=== PATIENT | male | born 1995 | race Caucasian/White ===

== ENCOUNTER → 2017-10-27 09:51 | Outpatient (CLI) | payer OTHER, SELFPAY ==
--- NOTE | 2017-10-27 09:59 | DI.CT.S_ITS ---
PROCEDURE: CT ANGIO CHEST ABDOMEN PELVIS INDICATIONS: pre-op for congenital heart disease valve replacement TECHNIQUE: Precontrast 5 mm thick sections acquired from the lung apices to the iliac crests. After the administration of intravenous contrast, 2.5 mm thick sections again acquired from the lung apices to the iliac crests. Maximum intensity projection (MIP) oblique sagittal and coronal reformats were then acquired. For radiation dose reduction, the following was used: automated exposure control. COMPARISON: None. FINDINGS: Image quality: Partially degraded by motion artifact within the abdomen. AORTA: The aorta at the level of the sinuses of Valsalva measures 54 mm short axis diameter. The sinotubular junction measures roughly 33 mm short axis. The proximal aortic arch measures 29 mm short axis. The distal aortic arch measures 19 mm short axis. The proximal descending thoracic aorta measures 25 mm short axis. The distal descending aorta measures 15 mm short axis. The innominate, right subclavian, and right vertebral arteries are patent. The visualized portions of the bilateral common carotid arteries are patent. Left subclavian artery is either chronically occluded at its origin, or congenitally absent. There is reconstituted flow is seen within the mid left subclavian artery, roughly 15 mm distal to its expected origin. The proximal left vertebral artery is occluded. There is some flow seen within a small caliber left vertebral artery, at roughly the C6 level. CHEST: Lungs and pleura: No acute airspace opacities. No pleural effusions or pneumothorax. Central and peripheral airways are patent and normal in caliber. Mediastinum: Heart size is normal. No pericardial effusion. No mediastinal or hilar adenopathy by size criteria. Central pulmonary arteries are mildly enlarged, measuring 22 mm on the right and 26 mm on the left. There is a stent within the main pulmonary artery. Esophagus is normal in caliber. No hiatal hernias. Bones and chest wall: No axillary adenopathy by size criteria. Thyroid gland is within normal limits. No suspicious bony lesions. No vertebral body compression fractures. ABDOMEN: Vasculature: Celiac trunk and mesenteric arteries are patent. Renal arteries are also patent. Solid organs: Liver is normal in size. There is reflux of cardiac contrast into the hepatic venous vasculature. Gallbladder is within normal limits. Biliary system is non dilated. Pancreas enhances normally. Spleen is normal in size and enhancement. No adrenal nodules. Both kidneys are normal in size and enhancement, without hydronephrosis. Peritoneum and bowel: No free fluid or air. Bowel loops are normal in caliber and wall thickness. Nodes and vessels: No retroperitoneal or mesenteric adenopathy by size criteria. Inferior vena cava is normal in morphology. 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 Left renal vein drains to the left moiety of the IVC. The right external iliac artery is severely diffusely narrowed. The right proximal common femoral artery appears to be congenitally absent. There is reconstituted flow seen within the right distal common femoral artery. The right proximal superficial and profunda femoral arteries are patent. Left iliac arterial vasculature is patent. Left common and proximal superficial femoral and profunda femoris are patent. Miscellaneous: No ventral hernias. PELVIS: Genitourinary: Bladder wall thickness is normal. Miscellaneous: No inguinal hernias or adenopathy. No ventral hernias. Bones: No suspicious bony lesions. No vertebral body compression fractures. IMPRESSION: 1. Aneurysmal dilatation of the aortic root as described above. 2. Duplicated infrarenal IVC. 3. Pulmonary artery dilatation. 4. Right heart failure. 5. 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 6. 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 Dictated by: Vitlaiy Conroy M.D. on 10/27/2017 at 11:59 Approved by: Vitaliy Conroy M.D. on 10/27/2017 at 12:13
== END ==
PROVIDERS: PCP Internal Medicine; Visit Provider Internal Medicine
DX: Q25.1 Coarctation of aorta (principal); I50.89 Other heart failure; I28.8 Other diseases of pulmonary vessels
CPT/HCPCS: 71275; 74174; Q9967

== ENCOUNTER → 2018-01-16 15:52 | Outpatient (CLI) | payer OTHER, SELFPAY ==
[2018-01-16 16:28] LABS: Add Manual Diff / Slide Review NO; Basophils Percent Auto 0.4 % (0-2); Eosinophils Percent Auto 3.1 % (2-4); Hematocrit 38.2 % (41-53); Hemoglobin 12.4 g/dL (13.5-17.5); Mean Corpuscular HGB Conc 32.5 % (30-36); Mean Corpuscular Hemoglobin 27.1 PG (26-34); Mean Corpuscular Volume 83.6 fL (80-100); Monocytes Percent Auto 6.7 % (3-14); Neutrophils Absolute Auto 8500 /uL (3000-5900); Neutrophils Percent Auto 73.8 % (50-75); Platelet Count 466 X10^3/uL (150-400); Red Blood Cell Count 4.57 X10^6/uL (4.5-5.9); Red Cell Distribution Width 15.3 % (11.6-14.8); White Blood Cell Count 11.5 X10^3/uL (4.5-11.0)
[2018-01-16 16:52] LABS: Alanine Aminotransferase 45 IU/L (21-72); Albumin 4.5 g/dL (3.5-5.0); Albumin Globulin Ratio 1.7 (1.0-2.8); Alkaline Phosphatase 99 U/L (38-126); Amylase 35 U/L (30-110); Aspartate Aminotransferase 32 IU/L (17-59); BUN Creatinine Ratio 26.7 (6-22); Bilirubin Total 0.6 mg/dL (0.2-1.3); Blood Urea Nitrogen 16 mg/dL (9-20); Calcium 9.8 mg/dL (8.4-10.2); Carbon Dioxide 26 mmol/L (22-32); Chloride 102 mmol/L (98-107); Estimated Glomerular Filt Rate > 60.0 mL/min (>60); Globulin 2.6 g/dL (1.7-4.1); Glucose 94 mg/dL (70-100); HEMOLYSIS < 15 (0-50); Lipase 59 U/L (23-300); Potassium 4.4 mmol/L (3.4-5.1); Sodium 142 mmol/L (137-145); Total Protein 7.1 g/dL (6.3-8.2)
== END ==
PROVIDERS: PCP Internal Medicine; Visit Provider Family Medicine
DX: R11.10 Vomiting, unspecified (principal); R19.7 Diarrhea, unspecified
CPT/HCPCS: 36415; 80053; 82150; 83690; 85025

== ENCOUNTER → 2018-01-18 13:45 | Outpatient (CLI) | payer OTHER, SELFPAY ==
--- NOTE | 2018-01-18 13:46 | DI.RAD.S_ITS ---
PROCEDURE: FL BARIUM SWALLOW INDICATIONS: vomiting post cardiac surg COMPARISON: None. FINDINGS: Function: There is normal esophageal peristalsis. No elicited gastroesophageal reflux. Morphology: Single contrast images demonstrate normal mucosal morphology. Single contrast views show no esophageal strictures, extrinsic mass effects, or diverticula. Limited images of the stomach demonstrate normal appearance. IMPRESSION: Patient reports prior cardiac surgery for valve replacement, and cannot rotate into a prone position for portions of this study. The study appears normal in terms of the esophageal motility, gastric appearance, and absence of reflux. Dictated by: Jc Ojeda M.D. on 01/18/2018 at 14:52 Approved by: Jc Ojeda M.D. on 01/18/2018 at 14:53
== END ==
PROVIDERS: PCP Internal Medicine; Visit Provider Family Medicine
DX: R11.11 Vomiting without nausea (principal); Z95.2 Presence of prosthetic heart valve
CPT/HCPCS: 74220

== ENCOUNTER 2018-06-08 14:00 | Outpatient (RCR) | payer OTHER, SELFPAY | END 2018-06-08 15:00 | LOC: CAR 14:00 | PROVIDERS: PCP Internal Medicine; Visit Provider Internal Medicine | DX: Q24.9 Congenital malformation of heart, unspecified (principal); I51.7 Cardiomegaly | CPT/HCPCS: 93798 ==

== ENCOUNTER 2018-12-10 16:53 | Emergency (ER) | payer OTHER, SELFPAY ==
[2018-12-10 17:00] VITALS: BP 114/68; PULSE 89; RESP 18; TEMP 37; O2SAT 97; BMI 22.1
[2018-12-10 17:30] VITALS: BP 92/42; PULSE 71; RESP 11; O2SAT 98
[2018-12-10 17:32] LABS: Add Manual Diff / Slide Review NO; Basophils Absolute Auto 0 /uL (0-100); Basophils Percent Auto 0.5 % (0-2); Eosinophils Absolute Auto 200 /uL (0-450); Eosinophils Percent Auto 2.5 % (2-4); Hematocrit 43.9 % (41-53); Lymphocytes Absolute Auto 1400 /uL (1100-4500); Lymphocytes Percent Auto 16.1 % (25-40); Mean Corpuscular HGB Conc 34.1 % (30-36); Mean Corpuscular Hemoglobin 29.6 PG (26-34); Mean Corpuscular Volume 86.8 fL (80-100); Monocytes Absolute Auto 500 /uL (0-900); Monocytes Percent Auto 5.9 % (3-14); Neutrophils Absolute Auto 6300 /uL (1500-7000); Platelet Count 229 X10^3/uL (150-400); Red Blood Cell Count 5.06 X10^6/uL (4.5-5.9); Red Cell Distribution Width 13.5 % (11.6-14.8); White Blood Cell Count 8.4 X10^3/uL (4.5-11.0)
[2018-12-10 17:34] LABS: INR 3.1 (0.9-1.3); Prothrombin Time 36.7 SECONDS (10.1-12.7)
[2018-12-10 17:37] LABS: PTT Partial Thromboplastin Tim 46 SECONDS (26.4-36.2)
[2018-12-10 17:39] LABS: Alanine Aminotransferase 9 IU/L (21-72); Albumin 4.5 g/dL (3.5-5.0); Albumin Globulin Ratio 1.7 (1.0-2.8); Alkaline Phosphatase 55 U/L (38-126); Aspartate Aminotransferase 21 IU/L (17-59); BUN Creatinine Ratio 13.3 (6-22); Bilirubin Total 0.7 mg/dL (0.2-1.3); Blood Urea Nitrogen 12 mg/dL (9-20); Calcium 9.3 mg/dL (8.4-10.2); Carbon Dioxide 26 mmol/L (22-32); Chloride 105 mmol/L (98-107); Estimated Glomerular Filt Rate > 60.0 mL/min (>60); Globulin 2.6 g/dL (1.7-4.1); Glucose 91 mg/dL (70-100); HEMOLYSIS < 15 (0-50); Lipase 407 U/L (23-300); Potassium 3.8 mmol/L (3.4-5.1); Sodium 141 mmol/L (137-145); Total Protein 7.1 g/dL (6.3-8.2)
[2018-12-10 17:50] LABS: Troponin I < 0.012 ng/mL (0.01-0.034)
--- NOTE | 2018-12-10 18:00 | ED_ITS ---
HPI - Dizziness General Chief Complaint: Dizziness Stated Complaint: SUDDEN DIZZINESS/CROSS EYED AFTER NAP Time Seen by Provider: 12/10/18 17:10 Source: patient Mode of arrival: ambulatory Limitations: no limitations History of Present Illness HPI Narrative: 23-year-old male. Has a history of congenital heart abnor malities. Has his aortic mitral and pulmonary valves replaced. He is currently on Coumadin. He is here for evaluation because he states he was at his normal state health when he was sitting on the couch. He states that he started to feel little dizzy. He did describe it as a room spinning sensation and also a lightheadedness. He had no other associated symptoms. He states that he closed his eyes to take a nap. States he was feeling somewhat tired at the time. He states that he woke to his girlfriend tapping him on the shoulder in telling him to look at her. His girlfriend states that when he did so his left eye was deviated laterally. Patient states that at that time he was not experiencing any chest pain or shortness of breath or palpitations. Was not experiencing headache no ringing in his ears. He did feel quite nauseous at the time. Had some difficulty ambulating but was able to do so. Unsure of his symptoms resolved or got worse with closing of 1 or both of his eyes did have 1 episode of vomiting. Did that his symptoms did completely resolve after less than 45 mi nutes and was asymptomatic at the time my evaluation. Related Data Home Medications Medication Instructions Recorded Confirmed aspirin 81 mg tablet,delayed 81 mg PO DAILY 01/03/18 08/01/18 release enalapril maleate 10 mg tablet 10 mg PO DAILY 07/09/18 08/01/18 Previous Rx's Medication Instructions Recorded warfarin 5 mg tablet 5 mg PO DAILY #150 tab 02/06/18 Allergies Allergy/AdvReac Type Severity Reaction Status Date / Time No Known Drug Allergies Allergy Verified 12/10/18 17:00 Review of Systems Constitutional Constitutional: Denies fatigue, Denies fever(s), Denies headache(s), Denies lethargy and Denies weakness Eyes Eyes: Reports blurry vision and Reports diplopia ENT Ears, Nose, Mouth, and Throat: Reports vertigo, Reports dizziness, Denies headache(s), Denies hearing loss, Reports disequilibrium and Denies throat swelling Cardiovascular Cardiovascular: Denies chest pain, Denies diaphoresis, Denies rapid heart rate, Denies palpitations and Denies dyspnea Respiratory Respiratory: Denies cough and Denies dyspnea Gastrointestinal Gastrointestinal: Denies abdominal pain and Reports vomiting Musculoskeletal Musculoskeletal: Denies myalgias, Denies arthralgias and Denies numbness Integumentary/Breasts Skin/Breast: Denies rash Neurologic Neurologic: Denies abnormal movements, Denies abnormal speech, Denies confusion, Reports vertigo, Reports dizziness, Denies headache(s), Denies focal weakness, Denies memory loss, Denies numbness, Denies seizure-like activity, Denies sen gonzalez deficit, Denies paresthesias, Reports disequilibrium and Denies weakness Psychiatric Psychiatric: Denies confusion and Denies memory loss Endocrine Endocrine: Denies fatigue and Denies palpitations Hematologic/Lymphatic Comments: On could Allergic/Immunologic Allergic/Immunologic: Denies urticaria and Denies throat swelling [facility] Medical History Aortic regurgitation (Chronic ~94) Aortic stenosis (Chronic 94) Chicken pox (Resolved 1998) Migraines (Chronic 2009) Surgical History (Updated 01/03/18 @ 17:35 by FABIENNE Mancia) Anesthesia (Resolved) History of aortic coarctation repair (Resolved 08/1994) History of heart valve replacement (Resolved 10/2008) History of open heart surgery (Resolved 10/1998) History of valvuloplasty (Resolved 10/1994) Status post transcatheter replacement of pulmonary valve (Resolved 09/22/07) Family History (Updated 11/21/17 @ 14:46 by Maddie Aponte) Grandfather Age: 87 Hypertension High cholesterol Heart attack Heart disease Hx of CABG Father No problems noted. Brother No problems noted. Sister No problems noted. Grandmother No problems noted. Mother No problems noted. Grandfather Heart attack Lung cancer Grandmother No problems noted. Social History Smoking Status: Never smoker Family History (Updated 11/21/17 @ 14:46 by Maddie Aponte) Grandfather Age: 87 Hypertension High cholesterol Heart attack Heart disease Hx of CABG Father No problems noted. Brother No problems noted. Sister No problems noted. Grandmother No problems noted. Mother No problems noted. Grandfather Heart attack Lung cancer Grandmother No problems noted. Social History Smoking Status: Never smoker Exam Initial Vital Signs Initial Vital Signs: Vital Signs Temperature 98.6 F 12/10/18 17:00 Pulse Rate 89 12/10/18 17:00 Respiratory Rate 18 12/10/18 17:00 Blood Pressure 114/68 12/10/18 17:00 Pulse Oximetry 97 12/10/18 17:00 Const General: cooperative, comfortable, well developed and well groomed Orientation: alert, awake and oriented x3 HENMT Head: normal to inspection and normocephalic Eyes Pupils: PERRL EOM: EOM intact bilaterally Resp Effort & Inspection: normal respiratory effort Auscultation: clear to auscultation bilaterally Cardio Rate: regular rate Rhythm: regular rhythm Heart Sounds: murmur GI Inspection: non-distended Palpation: soft Skin Lesions: no lesions Rashes: no rashes Neuro General: alert, awake and oriented x3 Cranial Nerves: CN's II-XI intact bilaterally Cognition: normal cognition Speech: speech normal Gait: normal gait Motor: muscle tone normal throughout Sensory Exam: no sensory deficits noted Extrem General: normal to inspection, capillary refill normal and No edema Psych Appearance: grossly normal and well kempt Course Orders Ordered: ED Orders 12/10/18 17:11 EKG-12 Lead Stat 12/10/18 17:18 Complete Blood Count AUTO DIFF Stat Comprehensive Metabolic Panel Stat Lipase Stat Partial Thromboplastin Time Stat Prothrombin Time INR Stat Troponin I Stat Vital Signs Vital signs: Vital Signs - 8 hr 12/10/18 17:00 12/10/18 17:30 Temperature 98.6 F Pulse Rate 89 71 Respiratory Rate 18 11 L Blood Pressure 114/68 Blood Pressure [Left Arm] 92/42 L Pulse Oximetry 97 98 MDM - Dizziness Medical Records Attestation: I reviewed the patient's medical records. Lab Data Attestation: I reviewed the patient's lab results. Result diagrams: 12/10/18 17:18 12/10/18 17:18 Labs: Lab Results 12/10/18 12/10/18 12/10/18 Range/Units 17:18 17:18 17:18 WBC 8.4 (4.5-11.0) X10^3/uL RBC 5.06 (4.5-5.9) X10^6/uL Hgb 15.0 (13.5-17.5) g/dL Hct 43.9 (41-53) % MCV 86.8 (80-100) fL MCH 29.6 (26-34) PG MCHC 34.1 (30-36) % RDW 13.5 (11.6-14.8) % Plt Count 229 (150-400) X10^3/uL Neut % (Auto) 75.0 (50-75) % Lymph % (Auto) 16.1 L (25-40) % [place] % (Auto) 5.9 (3-14) % Eos % (Auto) 2.5 (2-4) % Baso % (Auto) 0.5 (0-2) % Neut # (Auto) 6300 (9641-7080) /uL Lymph # (Auto) 1400 (2268-9469) /uL [place] # (Auto) 500 (0-900) /uL Eos # (Auto) 200 (0-450) /uL Baso # (Auto) 0 (0-100) /uL PT 36.7 H (10.1-12.7) SECONDS INR 3.1 H (0.9-1.3) APTT 46 H (26.4-36.2) SECONDS Sodium 141 (137-145) mmol/L Potassium 3.8 (3.4-5.1) mmol/L Chloride 105 (98-107) mmol/L Carbon Dioxide 26 (22-32) mmol/L BUN 12 (9-20) mg/dL Creatinine 0.90 (0.66-1.25) mg/dL Estimated GFR > 60.0 (>60) mL/min BUN/Creatinine Ratio 13.3 (6-22) Glucose 91 (70-100) mg/dL Calcium 9.3 (8.4-10.2) mg/dL Total Bilirubin 0.7 (0.2-1.3) mg/dL AST 21 (17-59) IU/L ALT 9 L (21-72) IU/L Alkaline Phosphatase 55 (38-126) U/L Troponin I < 0.012 (0.01-0.034) ng/mL Total Protein 7.1 (6.3-8.2) g/dL Albumin 4.5 (3.5-5.0) g/dL Globulin 2.6 (1.7-4.1) g/dL Albumin/Globulin Ratio 1.7 (1.0-2.8) Lipase 407 H (23-300) U/L ECG Data Attestation: I personally reviewed and interpreted this ECG as follows: Prior ECG tracings: not available for review Interpretation: Sinus rhythm Ventricular rate 83 As needed oval 186 QRS duration [address] T wave changes MDM Narrative Medical decision making narrative: Patient completely asymptomatic since being here in the emergency department. He has a normal neurologic exam. His INR is within his therapeutic range which is 2.5-3.5. 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 His girlfriend stated that his left eye was deviated laterally. This was not evident on his exam here in the ER. It showed no signs of heart block on his EKG which his family did have some concern about. Potentially there been some discussion with his associate professor of counseling about maybe needing a pacemaker and they told him that if he ever had any dizziness he should come to the emergency department. I do not think that that was the cause of his symptoms today. He was not having any chest pain or palpitations. He has no heart block on his EKG today. I do have a low suspicion for TIA, low suspicion for CVA, low suspicion for intracranial hemorrhage. We did discuss potentially doing a CT scan here in the emergency department for this however after this discussion decision was made to not do a CT scan. We will hold on further workup for now. Unsure as the exact etiology of his symptoms but everything seems to be resolved now. Will have him continue his medications. He was given strict return precautions and follow-up instructions. He expressed understanding and agreement plan. Discharge Plan Departure Patient Disposition: Home Clinical Impression: Vertigo Instructions: DI for Vertigo Activity Restrictions/Additional Instructions: I recommend that you continue all of your medications as directed. If your symptoms worsen or you develop any new symptoms to include chest pain, palpitations, blurry vision, double vision or if you pass out please return to the emergency department immediately for further evaluation. Contact your primary doctor and your associate professor of counseling for follow-up. Prescriptions: No Action enalapril maleate 10 mg tablet 10 mg PO DAILY RF: 0 aspirin 81 mg tablet,delayed release (DR/EC) 81 mg PO DAILY RF: 0 warfarin 5 mg tablet 5 mg PO DAILY Qty: 150 RF: 3 Referrals: Michelle Robertson MD [Primary Care Provider] -
[2018-12-10 18:30] VITALS: BP 104/41; PULSE 66; RESP 19; O2SAT 98
== END 2018-12-10 19:10 | disposition home or self-care (01) ==
PROVIDERS: Emergency Provider Emergency Medicine; PCP Family Medicine
DX: R42 Dizziness and giddiness (principal)
CPT/HCPCS: 36415; 36591; 80053; 83690; 84484; 85025; 85610; 85730; 93005; 99282; 99284

== ENCOUNTER → 2019-04-17 14:41 | Outpatient (CLI) | payer OTHER, SELFPAY ==
[2019-04-17 15:20] LABS: Influenza A - CEPHEID Flu A NEGATIVE (NEGATIVE); Influenza B - CEPHEID Flu B POSITIVE (NEGATIVE)
== END ==
PROVIDERS: PCP Family Medicine; Visit Provider Physician Assistant
DX: R05 Cough (principal)
CPT/HCPCS: 87502

== ENCOUNTER → 2019-04-20 13:51 | Outpatient (CLI) | payer OTHER, SELFPAY ==
[2019-04-20 15:49] LABS: INR 3.7 (0.9-1.3); Prothrombin Time 43.7 SECONDS (10.1-12.7)
== END ==
PROVIDERS: PCP Family Medicine; Visit Provider Family Medicine
DX: Z95.2 Presence of prosthetic heart valve (principal)
CPT/HCPCS: 36415; 85610

== ENCOUNTER → 2019-04-26 15:46 | Outpatient (CLI) | payer OTHER, SELFPAY ==
[2019-04-26 16:19] LABS: INR 4.7 (0.9-1.3)
== END ==
PROVIDERS: Family Provider Family Medicine; PCP Family Medicine; Visit Provider Family Medicine
DX: Z95.2 Presence of prosthetic heart valve (principal); Z79.01 Long term (current) use of anticoagulants
CPT/HCPCS: 36415; 85610

== ENCOUNTER 2019-04-28 13:30 | Emergency (ER) | payer OTHER, SELFPAY ==
[2019-04-28 13:59] VITALS: BP 90/67; PULSE 86; RESP 14; TEMP 36.4; O2SAT 99; BMI 22.1
[2019-04-28 14:28] LABS: INR 2.3 (0.9-1.3); Prothrombin Time 27.1 SECONDS (10.1-12.7)
[2019-04-28 15:26] VITALS: PULSE 87; RESP 16; O2SAT 98
--- NOTE | 2019-04-29 05:04 | ED.RECABL ---
HPI - Recheck/Abnormal Lab/Rx <FABIENNE Mittal - Last Filed: 04/29/19 05:12> General Chief Complaint: Recheck/Abnormal Lab/Rx Stated Complaint: NEEDS INR CHECKED Time Seen by Provider: 04/28/19 14:18 Source: patient Mode of arrival: Ambulatory Limitations: no limitations History of Present Illness HPI narrative: This is a 23-year-old male, nonsmoker, who presents to ED in request of INR check. Patient currently takes warfarin for congenital aortic stenosis since December 2017. His goal for INR is 2.5-3.5. Patient recently was treated with Tamiflu for positive influenza. Last INR on 04/26/19 was elevated to 4.7 and 5.1 and held a dose of Warfarin. Patient has scheduled to have INR redrawn in 2 days but he had Mexian food with chilli last night and later he learned that it has high vitamin K and decided to come into ED for INR evaluation before the next appointment. The patient denies any other request or c/o. Related Data Home Medications Medication Instructions Recorded Confirmed aspirin 81 mg tablet,delayed 81 mg PO DAILY 01/03/18 04/17/19 release enalapril maleate 10 mg tablet 10 mg PO DAILY 07/09/18 04/17/19 Previous Rx's Medication Instructions Recorded warfarin 5 mg tablet 5 mg PO DAILY #150 tab 01/08/19 Allergies Allergy/AdvReac Type Severity Reaction Status Date / Time No Known Drug Allergies Allergy Verified 04/17/19 14:32 Review of Systems <FABIENNE Mittal - Last Filed: 04/29/19 05:12> Review of Systems Narrative: General: Denies fever, chills, fatigue, malaise, sweats. HEENT: Denies sinus pain, ear pain, sore throat, difficulty swallowing, dizziness. Respiratory: Denies dyspnea, cough, wheezing, hemoptysis, sputum. Cardiovascular: Denies chest pain, palpitations, orthopnea, edema. Gastrointestinal: Denies nausea, vomiting, abdominal pain, diarrhea, constipation, melena. : Denies dysuria, frequency, incontinence, hematuria, urinary retention. Musculoskeletal: Denies weakness, joint pain or bony pain. Skin: Denies rash, skin lesions, or other. Neurologic: Denies weakness, headache, numbness, change in speech, confusion, seizures, incoordination. Psychiatric: No concerning psychosocial issues. 12-point review of systems is negative except for those stated above. Patient History <FABIENNE Mittal - Last Filed: 04/29/19 05:12> Surgical History (Updated 01/03/18 @ 17:35 by FABIENNE Mancia) Anesthesia (Resolved) History of aortic coarctation repair (Resolved 08/1994) History of heart valve replacement (Resolved 10/2008) History of open heart surgery (Resolved 10/1998) History of valvuloplasty (Resolved 10/1994) Status post transcatheter replacement of pulmonary valve (Resolved 09/22/07) Family History (Updated 11/21/17 @ 14:46 by Maddie Aponte) Grandfather Age: 88 Hypertension High cholesterol Heart attack Heart disease Hx of CABG Father No problems noted. Brother No problems noted. Sister No problems noted. Grandmother No problems noted. Mother No problems noted. Grandfather Heart attack Lung cancer Grandmother No problems noted. Social History Smoking Status: Never smoker Smoking Status: Never smoker alcohol intake frequency: a few times a week Substance Use Type: marijuana Exam <FABIENNE Mittal - Last Filed: 04/29/19 05:12> Narrative Exam Narrative: General appearance: well developed, well nourished, in no acute distress. Head: normocephalic, atraumatic, no scalp lesions, non-tender. ENT: Hearing grossly intact. Nose without bleeding, purulent discharge, septal hematoma or deviation. Turbinate without erythema or swelling. Facial sinuses nontender to palpate. Mucous membrane moist, no mucosal lesion. Throat without erythema, tonsillar hypertrophy or exudate. Uvula in midline, airway patent. Neck/Thyroid: neck supple, full range of motion, no visible masses or meningeal signs. No JVD, non-tender without lymphadenopathy. Skin: no suspicious rashes, lesions over visible areas. Warm and dry and appropriate color for ethnicity. Heart: no clubbing, no cyanosis, no edema. Lungs: Breathing even and unlabored. No stridor. No accessory muscles used. Able to speak in full sentences. Chest: normal shape and expansion. Abdomen: non-obese, non-distended. Neurologic: alert and oriented. Cognitive exam, DIGITAL ARCHIVIST and PNS grossly intact on informal exam. Psych: good eye contact, normal affect. Initial Vital Signs Initial Vital Signs: Vital Signs Temperature 97.6 F 04/28/19 13:59 Pulse Rate 86 04/28/19 13:59 Respiratory Rate 14 04/28/19 13:59 Blood Pressure 90/67 04/28/19 13:59 Pulse Oximetry 99 04/28/19 13:59 <Fauzia Cha DO - Last Filed: 04/30/19 11:55> Initial Vital Signs Initial Vital Signs: Vital Signs Temperature 97.6 F 04/28/19 13:59 Pulse Rate 86 04/28/19 13:59 Respiratory Rate 14 04/28/19 13:59 Blood Pressure 90/67 04/28/19 13:59 Pulse Oximetry 99 04/28/19 13:59 Scores <FABIENNE Mittal - Last Filed: 04/29/19 05:12> [place] coma scale eye opening: Spontaneous [place] coma scale verbal response: Orientated [place] coma scale motor response: Obey commands [place] coma scale total score: 15 MDM - Recheck/Abnormal Lab/Rx <FABIENNE Mittal - Last Filed: 04/29/19 05:12> Differential Diagnosis Differential diagnosis: Likely warfarin-induced coagulopathy and other (normal INR) Medical Records Attestation: I reviewed the patient's medical records. Lab Data Attestation: I reviewed the patient's lab results. Labs: Lab Results 04/28/19 Range/Units 14:13 PT 27.1 H D (10.1-12.7) SECONDS INR 2.3 H (0.9-1.3) MDM Narrative Medical decision making narrative: INR today near the goal of 2.5-3.5 range. Patient advised to resume his normal warfarin dose and to follow-up with his Tuesday appointment as scheduled. Patient verbalized understanding and agrees with plan. <Fauzia Cha DO - Last Filed: 04/30/19 11:55> Lab Data Labs: Lab Results 04/28/19 Range/Units 14:13 PT 27.1 H D (10.1-12.7) SECONDS INR 2.3 H (0.9-1.3) Discharge Plan Departure Patient Disposition: Home Clinical Impression: Encounter for laboratory test Discharge Date/Time: 04/28/19 15:26 Activity Restrictions/Additional Instructions: You were seen today for repeat INR test for Coumadin level. Today result is 2.3 near your goal range of 2.5 through 3.5. You can resume your normal Coumadin dose today. What to do: *Take your medications as directed. *Follow up with your clinic on Tuesday as scheduled. Avoid foods high in Vitamin K. Let them know you were seen in the ED and that we asked you to be seen in follow up. *Return to ED if you have any new, worsening, or concerning symptoms, such as [chest pain, breathing difficulty, unable to tolerate fluids, or any acute concerns]. Prescriptions: No Action enalapril maleate 10 mg tablet 10 mg PO DAILY RF: 0 warfarin 5 mg tablet 5 mg PO DAILY Qty: 150 RF: 3 aspirin 81 mg tablet,delayed release (DR/EC) 81 mg PO DAILY RF: 0 Referrals: Michelle Robertson MD [Primary Care Provider] -
== END 2019-04-28 15:26 | disposition home or self-care (01) ==
PROVIDERS: Emergency Medicine; Emergency Provider Nurse Practitioner Family; Family Provider Family Medicine; PCP Family Medicine
DX: Z51.81 Encounter for therapeutic drug level monitoring (principal); Z79.01 Long term (current) use of anticoagulants
CPT/HCPCS: 36415; 85610; 99283

== ENCOUNTER → 2020-10-07 16:32 | Outpatient (CLI) | payer OTHER, SELFPAY ==
--- NOTE | 2020-10-07 | DI.RAD.S_ITS ---
PROCEDURE: XR LUMBAR SPINE 2-3V INDICATIONS: Lower Back/Lumbar Spine TECHNIQUE: 3 views of the lumbar spine were acquired. COMPARISON: None. FINDINGS: Bones: 5 dar-oan-umesxis vertebrae are present. Trace multilevel retrolisthesis. Mild disc height loss at the L5-S1 level. No vertebral body compression fractures. No suspicious bony lesions. Soft tissues: Overlying bowel gas pattern is normal. No suspicious soft tissue calcifications. IMPRESSION: 1. Trace multilevel retrolisthesis and mild disc degeneration at the L5-S1 level. Dictated by: Dipak Johnson [facility] Interpreted: Jc Ojeda MD on 10/07/2020 at 16:51 Transcribed by: DINH on 10/07/2020 at 16:52 Approved by: Jc Ojeda M.D. on 10/08/2020 at 7:32
== END ==
PROVIDERS: Family Provider Family Medicine; PCP Family Medicine; Referring Provider Chiropractor; Visit Provider Chiropractor
DX: M54.5 Low back pain (principal); M99.03 Segmental and somatic dysfunction of lumbar region; M51.37 Other intervertebral disc degeneration, lumbosacral region
CPT/HCPCS: 72100

== ENCOUNTER → 2020-11-13 15:20 | Outpatient (CLI) | payer OTHER, SELFPAY ==
--- NOTE | 2020-11-13 | DI.RAD.S_ITS ---
PROCEDURE: XR THORACIC SPINE 2V INDICATIONS: PAIN TECHNIQUE: 2 views of the thoracic spine were acquired. COMPARISON: [facility], CR, XR CERVICAL SPINE 2V OR 3V, 11/13/2020, 15:24. [facility], CR, XR LUMBAR SPINE 2-3V, 10/07/2020, 16:34. FINDINGS: Bones: No fractures or dislocations. No suspicious bony lesions. 12 pairs of ribs are noted, and appear intact where visualized. Soft tissues: No paravertebral stripe thickening. Sternotomy changes and prosthetic heart valves noted. IMPRESSION: Normal T-spine. Dictated by: Dipak Johnson [facility] Interpreted: Duglas Catherine MD on 11/13/2020 at 15:51 Transcribed by: JOCELYNN on 11/13/2020 at 15:52 Approved by: Duglas Catherine M.D. on 11/13/2020 at 17:02
--- NOTE | 2020-11-13 | DI.RAD.S_ITS ---
PROCEDURE: XR CERVICAL SPINE 2V OR 3V INDICATIONS: PAIN TECHNIQUE: 3 view(s) of the cervical spine were acquired. COMPARISON: None. FINDINGS: Bones: No fractures or dislocations to the T1 level. The lateral masses of C1 appear intact on the odontoid view. No suspicious bony lesions. Prior median sternotomy. Soft tissues: No prevertebral soft tissue swelling. IMPRESSION: Loss of lordosis; otherwise normal C-spine. Dictated by: Dipak Johnson [facility] Interpreted: Duglas Catherine MD on 11/13/2020 at 15:51 Transcribed by: JOCELYNN on 11/13/2020 at 15:51 Approved by: Duglas Catherine M.D. on 11/13/2020 at 17:01
== END ==
PROVIDERS: Family Provider Family Medicine; PCP Family Medicine; Referring Provider Chiropractor; Visit Provider Chiropractor
DX: M99.01 Segmental and somatic dysfunction of cervical region (principal); M99.02 Segmental and somatic dysfunction of thoracic region; M54.2 Cervicalgia; M54.6 Pain in thoracic spine
CPT/HCPCS: 72040; 72070

== ENCOUNTER 2021-09-18 11:43 | Emergency (ER) | payer OTHER, SELFPAY ==
[2021-09-18] VITALS (8 sets, daily range): BP systolic 108–127; BP diastolic 52–74; PULSE 70–80; RESP 12–20; TEMP 36.7; O2SAT 98–100; BMI 22.1
--- NOTE | 2021-09-18 12:04 | DI.RAD.S_ITS ---
PROCEDURE: XR CHEST 1V INDICATIONS: chest pain TECHNIQUE: One view of the chest was acquired. COMPARISON: [facility], , CHEST 2 VIEW, 02/09/2016, 14:32. FINDINGS: Surgical changes and devices: Median sternotomy wires and prosthetic heart valves are seen. Lungs and pleura: There is mild pulmonary vascular congestion. No focal infiltrate. No pleural effusions or pneumothorax. Mediastinum: Mediastinal contours appear normal. Heart size is normal. Bones and chest wall: No suspicious bony lesions. Overlying soft tissues appear unremarkable. IMPRESSION: Mild congestion. No focal infiltrate, pleural effusion or pneumothorax. Dictated by: Gerardo Arce M.D. on 09/18/2021 at 12:36 Approved by: Gerardo Arce M.D. on 09/18/2021 at 12:36
[2021-09-18 12:24] LABS: Add Manual Diff / Slide Review NO; Basophils Absolute Auto 0 /uL (0-100); Basophils Percent Auto 0.5 % (0-2); Eosinophils Absolute Auto 100 /uL (0-450); Eosinophils Percent Auto 1.7 % (2-4); Hemoglobin 14.7 g/dL (13.5-17.5); Lymphocytes Absolute Auto 900 /uL (1100-4500); Mean Corpuscular HGB Conc 34.2 % (30-36); Mean Corpuscular Hemoglobin 29.7 PG (26-34); Mean Corpuscular Volume 86.8 fL (80-100); Monocytes Absolute Auto 400 /uL (0-900); Monocytes Percent Auto 5.4 % (3-14); Neutrophils Absolute Auto 6700 /uL (1500-7000); Neutrophils Percent Auto 81.4 % (50-75); Platelet Count 233 X10^3/uL (150-400); Red Blood Cell Count 4.96 X10^6/uL (4.5-5.9); Red Cell Distribution Width 13.9 % (11.6-14.8); White Blood Cell Count 8.3 X10^3/uL (4.5-11.0)
[2021-09-18 12:29] LABS: INR 4.2 (0.9-1.3); Prothrombin Time 48.9 SECONDS (10.1-12.7)
[2021-09-18 12:31] LABS: PTT Partial Thromboplastin Tim 56 SECONDS (26.4-36.2)
[2021-09-18 12:33] LABS: Alanine Aminotransferase 16 IU/L (<50); Albumin Globulin Ratio 1.9 (1.0-2.8); Alkaline Phosphatase 58 U/L (38-126); Aspartate Aminotransferase 35 IU/L (17-59); BUN Creatinine Ratio 18.4 (6-22); Bilirubin Total 1.2 mg/dL (0.2-1.3); Blood Urea Nitrogen 14 mg/dL (9-20); Carbon Dioxide 23 mmol/L (22-32); Chloride 103 mmol/L (98-107); Creatine Kinase 221 U/L (55-170); Estimated Glomerular Filt Rate > 60 mL/min (>60); Globulin 2.6 g/dL (1.7-4.1); Glucose 94 mg/dL (70-100); HEMOLYSIS 19 (0-50); Lipase 29 U/L (23-300); Magnesium 2.2 mg/dL (1.6-2.3); Potassium 4.1 mmol/L (3.4-5.1); Sodium 135 mmol/L (137-145); Total Protein 7.6 g/dL (6.3-8.2)
[2021-09-18 12:44] LABS: Troponin I < 0.012 ng/mL (0.01-0.034)
[2021-09-18 12:48] LABS: CKMB % Relative Index 0.4 % (1.5-5.0)
--- NOTE | 2021-09-18 14:50 | ED.DIZZY ---
HPI - Dizziness General Chief Complaint: Dizziness Stated Complaint: Rt Eye Burning,Spins,No Strength Time Seen by Provider: 09/18/21 14:20 Source: patient Mode of arrival: Ambulatory History of Present Illness HPI Narrative: Patient is a 26-year-old male who has history of congenital aortic stenosis with mechanical valve is on warfarin presenting today with sudden onset of right eye burning and dizziness. 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 He felt lightheaded he needed to lay down. He had numbness and tingling all over his body which quickly resolved. No weakness. He did not have any vomiting in till the IV was placed in the emergency department. He has no chest pain or palpitations. No shortness for breath. He does not typically eat breakfast he did not eat breakfast this morning he is feeling better now brought him some lunch. The have a home INR monitor, 3 days ago INR was 2.9. He denies any headache. Related Data Home Medications Medication Instructions Recorded Confirmed aspirin 81 mg tablet,delayed 81 mg PO DAILY 01/03/18 02/14/20 release Previous Rx's Medication Instructions Recorded enalapril maleate 10 mg tablet See Rx Instructions .Route 04/17/21 .COMPLEX #180 tabs warfarin 5 mg tablet See Rx Instructions .Route 07/07/21 .COMPLEX #180 tabs Allergies Allergy/AdvReac Type Severity Reaction Status Date / Time No Known Drug Allergies Allergy Verified 09/18/21 12:00 Review of Systems Review of Systems Narrative: GENERAL: Denies chills, fatigue, malaise, fever, sweats, travel HEENT: Denies sinus pain, ear pain, sore throat, difficulty swallowing, neck pain RESPIRATORY: Denies dyspnea, cough, wheezing, hemoptysis, sputum. CARDIOVASCULAR: Denies chest pain, palpitations, orthopnea, edema GASTROINTESTINAL: Denies nausea, vomiting, abdominal pain, diarrhea, constipation, melena. : Denies dysuria, frequency, incontinence, hematuria, urinary retention, flank pain. MUSCULOSKELETAL: Denies weakness, joint pain, or bony pain SKIN: No rash, no erythema, no pruritus NEUROLOGIC: See HPI PSYCHIATRIC: No concerning psychosocial issues. 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 Brother No problems noted. Sister No problems noted. Grandmother No problems noted. Mother No problems noted. Grandfather Heart attack Lung cancer Grandmother No problems noted. Family/Other Loud snoring Heart disease Father Loud snoring Social History Smoking Status: Never smoker Smoking Status: Never smoker alcohol intake frequency: holidays/special occasions only Substance Use Type: marijuana Exam Initial Vital Signs Initial Vital Signs: Vital Signs Temperature 98.1 F 09/18/21 12:00 Pulse Rate 80 09/18/21 12:00 Respiratory Rate 14 09/18/21 12:00 Blood Pressure 125/73 09/18/21 12:00 Pulse Oximetry 100 09/18/21 12:00 Oxygen Delivery Method 09/18/21 12:00 GENERAL: Alert thin 26-year-old male and in no acute distress. HEENT: Head atraumatic,EOMI, pupils reactive, face symmetric, moist mucous membranes Right eye was treated with proparacaine, stained with fluorescein. No dye uptake. No foreign body. CARDIOVASCULAR: Regular rate and rhythm without murmurs, rubs or gallops. RESPIRATORY: Breath sounds equal bilaterally, no wheezes rales or rhonchi. ABDOMEN: Soft, nontender. Normoactive bowel sounds all 4 quadrants. No guarding or rebound. EXTREMITIES: Normal range of motion, no clubbing or edema. Neurovascularly intact NEUROLOGICAL: Alert and oriented x4.Normal gait and speech. Cranial nerves II through XII grossly intact. Good [id number]-[id number], good [id number], strength equal bilaterally, no dysarthria or aphasia, sensation in tact to soft touch bilaterally, no visual changes, no facial droop SKIN: Warm, dry, no laceration, no petechiae, no rashes or lesions. Course Orders Ordered: ED Orders 09/18/21 12:04 XR chest 1V Stat EKG-12 Lead Stat 09/18/21 12:15 Complete Blood Count AUTO DIFF Stat Comprehensive Metabolic Panel Stat Lipase Stat Magnesium Stat Partial Thromboplastin Time Stat Prothrombin Time INR Stat Troponin & CK Cardiac Panel Stat 09/18/21 15:10 CT head/brain wo con Stat 09/18/21 15:23 EKG-12 Lead Stat Discontinued Medications Fluorescein Sodium (Fluorescein 1 Mg Strip) 1 mg EYE-BOTH NOW ONE Stop: 09/18/21 15:11 Last Admin: 09/18/21 15:45 Dose: 1 mg Documented By: AT Proparacaine HCl (Proparacaine 0.5% Ophth Gloria) 1 drops EYE-BOTH NOW ONE Stop: 09/18/21 15:11 Last Admin: 09/18/21 15:44 Dose: 1 drops Documented By: AT Vital Signs Vital signs: Vital Signs - 8 hr 09/18/21 12:00 09/18/21 14:09 09/18/21 14:09 Temperature 98.1 F Pulse Rate 80 74 Respiratory Rate 14 Blood Pressure 125/73 111/69 Pulse Oximetry 100 99 Oxygen Delivery Method Room Air 09/18/21 14:30 09/18/21 14:30 09/18/21 15:02 Temperature Pulse Rate 70 Respiratory Rate Blood Pressure 127/74 117/58 L Pulse Oximetry 100 Oxygen Delivery Method 09/18/21 15:02 09/18/21 15:25 09/18/21 15:25 Temperature Pulse Rate 74 76 Respiratory Rate 12 Blood Pressure 108/59 L Pulse Oximetry 99 99 Oxygen Delivery Method 09/18/21 15:30 09/18/21 15:30 09/18/21 15:59 Temperature Pulse Rate 75 72 Respiratory Rate Blood Pressure 109/55 L Pulse Oximetry 98 98 Oxygen Delivery Method 09/18/21 16:00 09/18/21 16:00 Temperature Pulse Rate 74 Respiratory Rate 20 Blood Pressure 108/52 L Pulse Oximetry 98 Oxygen Delivery Method Room Air MDM - Dizziness Lab Data Result diagrams: 09/18/21 12:15 09/18/21 12:15 Labs: Lab Results 09/18/21 09/18/21 09/18/21 Range/Units 12:15 12:15 12:15 WBC 8.3 (4.5-11.0) X10^3/uL RBC 4.96 (4.5-5.9) X10^6/uL Hgb 14.7 (13.5-17.5) g/dL Hct 43.0 (41-53) % MCV 86.8 (80-100) fL MCH 29.7 (26-34) PG MCHC 34.2 (30-36) % RDW 13.9 (11.6-14.8) % Plt Count 233 (150-400) X10^3/uL Neut % (Auto) 81.4 H (50-75) % Lymph % (Auto) 11.0 L (25-40) % Pitkin % (Auto) 5.4 (3-14) % Eos % (Auto) 1.7 L (2-4) % Baso % (Auto) 0.5 (0-2) % Neut # (Auto) 6700 (5096-8882) /uL Lymph # (Auto) 900 L (1163-2346) /uL Pitkin # (Auto) 400 (0-900) /uL Eos # (Auto) 100 (0-450) /uL Baso # (Auto) 0 (0-100) /uL PT 48.9 H (10.1-12.7) SECONDS INR 4.2 H (0.9-1.3) APTT 56 H D (26.4-36.2) SECONDS Sodium 135 L (137-145) mmol/L Potassium 4.1 (3.4-5.1) mmol/L Chloride 103 (98-107) mmol/L Carbon Dioxide 23 (22-32) mmol/L BUN 14 (9-20) mg/dL Creatinine 0.76 (0.66-1.25) mg/dL Estimated GFR > 60 (>60) mL/min BUN/Creatinine Ratio 18.4 (6-22) Glucose 94 (70-100) mg/dL Calcium 9.0 (8.4-10.2) mg/dL Magnesium 2.2 (1.6-2.3) mg/dL Total Bilirubin 1.2 (0.2-1.3) mg/dL AST 35 (17-59) IU/L ALT 16 (<50) IU/L Alkaline Phosphatase 58 (38-126) U/L Total Creatine Kinase 221 H (55-170) U/L CK-MB (CK-2) 0.90 (<2.37) ng/mL CK-MB (CK-2) Rel Index 0.4 L (1.5-5.0) % Troponin I < 0.012 (0.01-0.034) ng/mL Total Protein 7.6 (6.3-8.2) g/dL Albumin 5.0 (3.5-5.0) g/dL Globulin 2.6 (1.7-4.1) g/dL Albumin/Globulin Ratio 1.9 (1.0-2.8) Lipase 29 (23-300) U/L Imaging Data CT scan - head: Radiologist's Impression: [address] [address] XRay Report Signed Patient: Jared Patiño MR#: [id number] : 1995 Acct:[id number] Age/Sex: 26 / M Date of Service: 09/18/21 Loc: ED Accession Number: [id number] ?? Procedure: XR chest 1V Ordering Provider: Fauzia Cha D.O. PROCEDURE:? XR CHEST 1V ? INDICATIONS:? chest pain ? TECHNIQUE:? One view of the chest was acquired.? ? COMPARISON:? [facility], , CHEST 2 VIEW, 02/09/2016, 14:32. ? FINDINGS:? ? Surgical changes and devices:? Median sternotomy wires and prosthetic heart valves are seen. ? Lungs and pleura:? There is mild pulmonary vascular congestion.? No focal infiltrate.? No pleural effusions or pneumothorax.? ? Mediastinum:? Mediastinal contours appear normal.? Heart size is normal.? ? Bones and chest wall:? No suspicious bony lesions.? Overlying soft tissues appear unremarkable.? ? IMPRESSION:? Mild congestion.? No focal infiltrate, pleural effusion or pneumothorax. ? ? Dictated by: Gerardo Arce M.D. on 09/18/2021 at 12:36 ? ? ECG Data Interpretation: Normal sinus rhythm rate 78 DE interval 180 QRS 108 QTC 444 to previous EKG EKG 2. Sinus rhythm rate 74 is similar to previous MDM Narrative Medical decision making narrative: Patient had some eye burning. No abnormality in his eye no foreign body no erythema is. He had a brief episode of dizziness and lightheadedness which resolved after [address] is negative. He is noted to have an elevated INR 4.2. He has a home monitoring device. At this time I recommend he hold his warfarin tonight and recheck it tomorrow. Blood work overall reassuring. Discharge Plan Departure Patient Disposition: Home Clinical Impression: Near syncope Instructions: DI for Syncope in Adults (Fainting) Activity Restrictions/Additional Instructions: *You have been diagnosed with near syncope *What to do: At this time no evidence or cause of right eye burning. Blood work CT scan reassuring. INR today is 4.2. Please hold your Coumadin tonight and recheck it tomorrow. All goal is for 2.5-3.5. *Continue to take medications as directed *Follow up with your primary care provider in 2-3 days or call [phone] *Return to ER if you should have increasing dizziness passing out headache nausea vomiting weakness numbness tingling chest pain or any new, worsening or concerning symptoms Prescriptions: No Action enalapril maleate 10 mg tablet See Rx Instructions .ROUTE .COMPLEX Qty: 180 2RF Dose Instruction: TAKE 1/2 TABLET BY MOUTH 2 TIMES A DAY. Rx Instructions: TAKE 1/2 TABLET BY MOUTH 2 TIMES A DAY. warfarin 5 mg tablet See Rx Instructions .ROUTE .COMPLEX Qty: 180 0RF Dose Instruction: TAKE 2 AND 1/2 TABLETS (12.5MG) ON TUES,THURS,FRI AND SUN. TAKE 2 TABLETS (10MG) THE OTHER 3 DAYS OR DIRECTED. Rx Instructions: TAKE 2 AND 1/2 TABLETS (12.5MG) ON TUES,THURS,FRI AND SUN. TAKE 2 TABLETS (10MG) THE OTHER 3 DAYS OR DIRECTED. aspirin 81 mg tablet,delayed release (DR/EC) 81 mg PO DAILY Referrals: Michelle Robertson MD [Primary Care Provider] - Visit Report Forms: Patient Portal/API
--- NOTE | 2021-09-18 15:10 | DI.CT.S_ITS ---
PROCEDURE: CT HEAD/BRAIN WO CON INDICATIONS: dizzy high INR TECHNIQUE: Noncontrast 4.5 mm thick angled axial sections acquired from the foramen magnum to the vertex, with coronal and sagittal reformats. For radiation dose reduction, the following was used: automated exposure control, adjustment of mA and/or kV according to patient size. COMPARISON: [facility], CT, SOFT TISSUE NECK W CONTRAST, 07/13/2011, 12:20. FINDINGS: Image quality: Excellent. CSF spaces: Basal cisterns are patent. No extra-axial fluid collections. Ventricles are normal in size and shape. Brain: No midline shift. No intracranial masses or hemorrhage. Carmichael-white matter interface is normal. Skull and face: Calvarium and visualized facial bones are intact, without suspicious lesions. Sinuses: Lxor-pj-yrpscsen mucosal thickening is seen involving the right maxillary sinus. Visualized sinuses and mastoids are otherwise relative clear. Bilateral shayy bullosa are seen, left larger than right. Moderate rightward nasal septal deviation is seen. IMPRESSION: No acute intracranial hemorrhage is seen. No acute intracranial process is seen. Dictated by: Puneet Stuart M.D. on 09/18/2021 at 14:26 Approved by: Puneet Stuart M.D. on 09/18/2021 at 14:29
[2021-09-18] MEDS: PROPARACAINE 0.5% OPHTH SOL 1 DROPS EYE-BOTH (15:44)
[2021-09-18] MEDS: FLUORESCEIN 1 MG STRIP EYE-BOTH (15:45)
== END 2021-09-18 16:17 | disposition home or self-care (01) ==
PROVIDERS: Emergency Provider Emergency Medicine; Family Provider Family Medicine; PCP Family Medicine
DX: R55 Syncope and collapse (principal); R07.9 Chest pain, unspecified; R42 Dizziness and giddiness
CPT/HCPCS: 36415; 70450; 71045; 80053; 82550; 82553; 83690; 83735; 84484; 85025; 85610; 85730; 93005; 93010; 99284

== ENCOUNTER 2022-07-19 16:43 | Emergency (ER) | payer OTHER, SELFPAY ==
[2022-07-19] VITALS (18 sets, daily range): BP systolic 98–118; BP diastolic 53–77; PULSE 61–77; RESP 12–30; TEMP 36.6; O2SAT 97–100; BMI 21.4
--- NOTE | 2022-07-19 17:01 | DI.RAD.S_ITS ---
PROCEDURE: XR CHEST 1V INDICATIONS: chest pain TECHNIQUE: One view of the chest was acquired. COMPARISON: [facility], CR, XR CHEST 1V, 09/18/2021, 12:12. FINDINGS: Surgical changes and devices: Midline sternal wires and cardiac valve prosthesis present Lungs and pleura: Lungs are clear. No pleural effusions or pneumothorax. Mediastinum: Mediastinal contours appear normal. Heart size is normal. Bones and chest wall: No suspicious bony lesions. Overlying soft tissues appear unremarkable. IMPRESSION: No acute cardiopulmonary findings Approved by: Alberto Mejia M.D. on 07/19/2022 at 17:20
--- NOTE | 2022-07-19 17:08 | PC.NURSE ---
On coumadin, recent travel from [place]. Reports chest pain and SOB. Denies nausea or diaphoresis
[2022-07-19 17:10] LABS: Add Manual Diff / Slide Review NO; Basophils Absolute Auto 100 /uL (0-100); Basophils Percent Auto 0.6 % (0-2); Eosinophils Absolute Auto 100 /uL (0-450); Eosinophils Percent Auto 0.7 % (2-4); Hematocrit 43.6 % (41-53); Hemoglobin 15.2 g/dL (13.5-17.5); Lymphocytes Absolute Auto 1300 /uL (1100-4500); Lymphocytes Percent Auto 14.3 % (25-40); Mean Corpuscular HGB Conc 34.9 % (30-36); Mean Corpuscular Volume 85.9 fL (80-100); Monocytes Absolute Auto 600 /uL (0-900); Monocytes Percent Auto 6.4 % (3-14); Neutrophils Absolute Auto 7100 /uL (1500-7000); Platelet Count 228 X10^3/uL (150-400); Red Blood Cell Count 5.07 X10^6/uL (4.5-5.9); Red Cell Distribution Width 13.9 % (11.6-14.8); White Blood Cell Count 9.2 X10^3/uL (4.5-11.0)
[2022-07-19 17:16] LABS: Prothrombin Time 53.1 SECONDS (10.1-12.7)
[2022-07-19 17:19] LABS: PTT Partial Thromboplastin Tim 56 SECONDS (26-36)
[2022-07-19 17:22] LABS: Alanine Aminotransferase 19 IU/L (<50); Albumin 4.8 g/dL (3.5-5.0); Albumin Globulin Ratio 1.7 (1.0-2.8); Alkaline Phosphatase 64 U/L (38-126); Aspartate Aminotransferase 29 IU/L (17-59); BUN Creatinine Ratio 15.7 (6-22); Bilirubin Total 0.9 mg/dL (0.2-1.3); Blood Urea Nitrogen 13 mg/dL (9-20); Calcium 9.4 mg/dL (8.4-10.2); Carbon Dioxide 27 mmol/L (22-32); Chloride 104 mmol/L (98-107); Creatine Kinase 96 U/L (55-170); Estimated Glomerular Filt Rate > 60 mL/min (>60); Globulin 2.8 g/dL (1.7-4.1); Glucose 106 mg/dL (70-100); HEMOLYSIS 17 (0-50); Lipase 47 U/L (23-300); Potassium 4.3 mmol/L (3.4-5.1); Sodium 139 mmol/L (137-145); Total Protein 7.6 g/dL (6.3-8.2)
[2022-07-19 17:28] LABS: INR 4.6 (0.9-1.3)
[2022-07-19 17:32] LABS: Troponin I < 0.012 ng/mL (0.01-0.034)
[2022-07-19 18:42] LABS: COVID19 -Nasal RAPID Negative (Negative)
--- NOTE | 2022-07-19 19:13 | DI.CT.S_ITS ---
PROCEDURE: CT ANGIO CHEST PE PROTOCOL INDICATIONS: Shortness of breath, chest pain TECHNIQUE: After the administration of intravenous contrast, 2 mm thick sections acquired from the pulmonary apices to the posterior costophrenic angles. 3-dimensional maximum intensity projection (MIP) coronal and sagittal reformats were then acquired through the thorax. For radiation dose reduction, the following was used: automated exposure control, adjustment of mA and/or kV according to patient size. COMPARISON: [facility], CT, CT ANGIO CHEST ABDOMEN PELVIS, 10/27/2017, 9:53. [facility], CR, XR CHEST 1V, 07/19/2022, 17:10. FINDINGS: Pulmonary arteries: no intraluminal filling defects to suggest central pulmonary embolism. Lungs and pleura: No consolidation, pleural effusion, pneumothorax. Unchanged 5 mm subpleural right lower lobe pulmonary nodule (5/106). Mediastinum: No pericardial effusion. Pulmonary artery, aorta, mitral valve replacements. Decreased dilation of the aortic root 4.1 cm, previously 5.5 cm remeasured similarly. No definite evidence of thoracic aortic dissection Bones and chest wall: Median sternotomy Abdomen: Visualized upper abdominal solid organs appear normal in the early arterial phase of enhancement. IMPRESSION: No pulmonary embolism identified. Dictated by: Duglas Ortega M.D. on 07/19/2022 at 19:38 Approved by: Duglas Ortega M.D. on 07/19/2022 at 19:48
[2022-07-19 19:39] LABS: Creatine Kinase 88 U/L (55-170)
[2022-07-19 19:52] LABS: Troponin I < 0.012 ng/mL (0.01-0.034)
--- NOTE | 2022-07-19 20:02 | ED.CHESTPAIN ---
HPI - Chest Pain <Mary Rashid PA-C - Last Filed: 07/19/22 20:23> General Chief Complaint: Chest Pain Stated Complaint: feel off/chest pain SOB/weakness in legs Time Seen by Provider: 07/19/22 17:06 Source: patient and family Mode of arrival: Family Vehicle Limitations: no limitations History of Present Illness HPI narrative: 27-year-old male with extensive cardiac history of congenital aortic stenosis, status post valve replacements, on warfarin presents today to the ED with 1 day of chest tightness, shortness of breath. Patient recently traveled back from [place] 2 days ago. Patient denies fever, chills, rhinorrhea, sore throat, cough, nausea, vomiting, dysuria, lightheadedness, dizziness, syncope. Patient describes the pain as chest tightness mostly on the right side, however he sporadically experiences the tightness on the left side as well. Patient reports intermittent shortness of breath, tiredness and fatigue. Patient is compliant with all his medications. Related Data Previous Rx's Medication Instructions Recorded warfarin 5 mg tablet See Rx Instructions .Route 02/08/22 .COMPLEX #195 tabs enalapril maleate 10 mg tablet See Rx Instructions .Route 06/02/22 .COMPLEX #180 tabs Allergies Allergy/AdvReac Type Severity Reaction Status Date / Time No Known Drug Allergies Allergy Verified 07/19/22 17:00 Review of Systems <Mary Rashid PA-C - Last Filed: 07/19/22 20:23> Review of Systems ROS Unobtainable: All systems reviewed & are unremarkable except as noted in HPI and below Constitutional Constitutional: Denies chills, Reports fatigue, Denies fever(s), Denies frequent falls, Denies lethargy and Denies weakness Eyes Eyes: Denies change in vision, Denies eye discharge, Denies irritation and Denies loss of vision ENT Ears, Nose, Mouth, and Throat: Denies change in voice, Denies dizziness, Denies neck pain, Denies sore throat and Denies throat swelling Cardiovascular Cardiovascular: Reports chest pain, Denies irregular heart rhythm, Denies lightheadedness, Denies palpitations, Reports dyspnea, Denies dyspnea on exertion and Denies orthopnea Respiratory Respiratory: Denies cough, Reports dyspnea, Denies dyspnea on exertion and Denies wheezing Gastrointestinal Gastrointestinal: Denies abdominal pain, Denies change in bowel habits, Denies diarrhea, Denies nausea and Denies vomiting Genitourinary Genitourinary: Denies hematuria, Denies flank pain, Denies urinary incontinence and Denies urinary urgency Musculoskeletal Musculoskeletal: Denies back pain, Denies muscle weakness, Denies neck pain, Denies numbness and Denies tingling Integumentary/Breasts Skin/Breast: Denies pruritus, Denies erythema, Denies rash and Denies wounds Neurologic Neurologic: Denies behavioral changes, Denies confusion, Denies dizziness, Denies frequent falls, Denies loss of vision, Denies numbness, Denies tingling and Denies weakness Psychiatric Psychiatric: Denies anxiety, Denies behavioral changes, Denies confusion, Denies depression, Denies homicidal ideation and Denies suicidal ideation Endocrine Endocrine: Reports fatigue, Denies flushing and Denies palpitations Hematologic/Lymphatic Hematologic/Lymphatic: Denies easy bruising Allergic/Immunologic Allergic/Immunologic: Denies urticaria, Denies throat swelling and Denies wheezing Patient History <Mary Rashid PA-C - Last Filed: 07/19/22 20:23> Medical History (Updated 07/19/22 @ 20:09 by Mary Rashid PA-C) Aortic regurgitation (~94) Aortic stenosis (94) Chicken pox (1998) Migraines (2009) Surgical History Anesthesia History of aortic coarctation repair (08/1994) History of heart valve replacement (10/2008) History of open heart surgery (10/1998) History of valvuloplasty (10/1994) 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 Brother No problems noted. Sister No problems noted. Grandmother No problems noted. Mother No problems noted. Grandfather Heart attack Lung cancer Grandmother No problems noted. Family/Other Loud snoring Heart disease Father Loud snoring Social History Smoking Status: Never smoker Smoking Status: Never smoker alcohol intake frequency: holidays/special occasions only Substance Use Type: marijuana Exam <Mary Rashid PA-C - Last Filed: 07/19/22 20:23> Narrative Exam Narrative: Const General:?cooperative, healthy appearing and comfortable HENMT Head:?normal to inspection Ears:?hearing grossly normal bilaterally Nose:?external nose normal Face and sinus:?normal facial exam and sinuses nontender Mouth:?oral mucosae normal Throat:?posterior oropharynx normal Eyes General:?appearance normal, both eyes and all related structures Neck Neck:?normal visual inspection and no lymphadenopathy noted Resp Effort & Inspection:?normal respiratory effort Auscultation:?clear to auscultation bilaterally Cardio Rate:?regular rate Rhythm:?regular rhythm Neuro General:?patient alert, patient awake and patient oriented x3 Initial Vital Signs Initial Vital Signs: Vital Signs Blood Pressure 118/77 07/19/22 16:56 <Jose Stone DO - Last Filed: 07/20/22 08:17> Initial Vital Signs Initial Vital Signs: Vital Signs Blood Pressure 118/77 07/19/22 16:56 <Jose Stone DO - Last Filed: 07/20/22 08:17> HEART Score Heart Score history: Slightly Suspicious Heart Score EKG: Non-Specific repolarization disturbance Heart Score Age: < 45 years old Heart Score risk factors: No known risk factors Heart Score troponin: < or = to normal limit Heart Score Total: 1 Course <PRADEEP Gonzalez Last Filed: 07/19/22 20:23> Orders Ordered: Discontinued Medications Aspirin (Aspirin 81 Mg Chew Tab) 324 mg PO NOW ONE Stop: 07/19/22 17:02 Last Admin: 07/19/22 17:34 Dose: Not Given Documented By: KLS Vital Signs Vital signs: Vital Signs - 8 hr 07/19/22 17:00 07/19/22 16:56 07/19/22 16:57 Temperature 97.9 F Pulse Rate 70 77 Respiratory Rate 22 Blood Pressure 118/77 118/77 Pulse Oximetry 99 97 Oxygen Delivery Method Room Air 07/19/22 17:00 07/19/22 17:15 07/19/22 17:30 Temperature Pulse Rate 77 69 73 Respiratory Rate 25 H 24 12 Blood Pressure Pulse Oximetry 99 99 97 Oxygen Delivery Method 07/19/22 17:45 07/19/22 18:00 07/19/22 18:15 Temperature Pulse Rate 71 72 70 Respiratory Rate 27 H 28 H 22 Blood Pressure Pulse Oximetry 97 98 100 Oxygen Delivery Method Room Air 07/19/22 18:35 07/19/22 18:36 07/19/22 18:36 Temperature Pulse Rate 65 Respiratory Rate 15 Blood Pressure 99/55 L Pulse Oximetry 100 100 Oxygen Delivery Method 07/19/22 18:45 07/19/22 19:00 07/19/22 19:00 Temperature Pulse Rate 66 62 Respiratory Rate 30 H 24 Blood Pressure 101/58 L Pulse Oximetry 99 99 Oxygen Delivery Method Room Air Room Air 07/19/22 19:15 07/19/22 19:30 07/19/22 19:45 Temperature Pulse Rate 61 66 62 Respiratory Rate 26 H Blood Pressure Pulse Oximetry 99 100 99 Oxygen Delivery Method Room Air 07/19/22 20:00 07/19/22 20:14 07/19/22 20:14 Temperature Pulse Rate 65 70 Respiratory Rate Blood Pressure 98/53 L Pulse Oximetry 99 98 Oxygen Delivery Method 07/19/22 20:17 Temperature Pulse Rate Respiratory Rate Blood Pressure 98/53 L Pulse Oximetry Oxygen Delivery Method <Jose Stnoe, DO - Last Filed: 07/20/22 08:17> Orders Ordered: Discontinued Medications Aspirin (Aspirin 81 Mg Chew Tab) 324 mg PO NOW ONE Stop: 07/19/22 17:02 Last Admin: 07/19/22 17:34 Dose: Not Given Documented By: MARIO Vital Signs Vital signs: Vital Signs - 8 hr 07/19/22 17:00 07/19/22 16:56 07/19/22 16:57 Temperature 97.9 F Pulse Rate 70 77 Respiratory Rate 22 Blood Pressure 118/77 118/77 Pulse Oximetry 99 97 Oxygen Delivery Method Room Air 07/19/22 17:00 07/19/22 17:15 07/19/22 17:30 Temperature Pulse Rate 77 69 73 Respiratory Rate 25 H 24 12 Blood Pressure Pulse Oximetry 99 99 97 Oxygen Delivery Method 07/19/22 17:45 07/19/22 18:00 07/19/22 18:15 Temperature Pulse Rate 71 72 70 Respiratory Rate 27 H 28 H 22 Blood Pressure Pulse Oximetry 97 98 100 Oxygen Delivery Method Room Air 07/19/22 18:35 07/19/22 18:36 07/19/22 18:36 Temperature Pulse Rate 65 Respiratory Rate 15 Blood Pressure 99/55 L Pulse Oximetry 100 100 Oxygen Delivery Method 07/19/22 18:45 07/19/22 19:00 07/19/22 19:00 Temperature Pulse Rate 66 62 Respiratory Rate 30 H 24 Blood Pressure 101/58 L Pulse Oximetry 99 99 Oxygen Delivery Method Room Air Room Air 07/19/22 19:15 07/19/22 19:30 07/19/22 19:45 Temperature Pulse Rate 61 66 62 Respiratory Rate 26 H Blood Pressure Pulse Oximetry 99 100 99 Oxygen Delivery Method Room Air 07/19/22 20:00 07/19/22 20:14 07/19/22 20:14 Temperature Pulse Rate 65 70 Respiratory Rate Blood Pressure 98/53 L Pulse Oximetry 99 98 Oxygen Delivery Method 07/19/22 20:17 Temperature Pulse Rate Respiratory Rate Blood Pressure 98/53 L Pulse Oximetry Oxygen Delivery Method MDM - Chest Pain <Mary Rashid PA-C - Last Filed: 07/19/22 20:23> Lab Data 07/19/22 17:02 07/19/22 17:02 Labs: Lab Results 07/19/22 07/19/22 07/19/22 Range/Units 17:02 17:02 17:02 WBC 9.2 (4.5-11.0) X10^3/uL RBC 5.07 (4.5-5.9) X10^6/uL Hgb 15.2 (13.5-17.5) g/dL Hct 43.6 (41-53) % MCV 85.9 (80-100) fL MCH 30.0 (26-34) PG MCHC 34.9 (30-36) % RDW 13.9 (11.6-14.8) % Plt Count 228 (150-400) X10^3/uL Neut % (Auto) 78.0 H (50-75) % Lymph % (Auto) 14.3 L (25-40) % [place] % (Auto) 6.4 (3-14) % Eos % (Auto) 0.7 L (2-4) % Baso % (Auto) 0.6 (0-2) % Neut # (Auto) 7100 H (9998-6625) /uL Lymph # (Auto) 1300 (1302-3867) /uL [place] # (Auto) 600 (0-900) /uL Eos # (Auto) 100 (0-450) /uL Baso # (Auto) 100 (0-100) /uL PT 53.1 H (10.1-12.7) SECONDS INR 4.6 H* (0.9-1.3) APTT 56 H (26-36) SECONDS Sodium 139 (137-145) mmol/L Potassium 4.3 (3.4-5.1) mmol/L Chloride 104 (98-107) mmol/L Carbon Dioxide 27 (22-32) mmol/L BUN 13 (9-20) mg/dL Creatinine 0.83 (0.66-1.25) mg/dL Estimated GFR > 60 (>60) mL/min BUN/Creatinine Ratio 15.7 (6-22) Glucose 106 H (70-100) mg/dL Calcium 9.4 (8.4-10.2) mg/dL Magnesium 2.0 (1.6-2.3) mg/dL Total Bilirubin 0.9 (0.2-1.3) mg/dL AST 29 (17-59) IU/L ALT 19 (<50) IU/L Alkaline Phosphatase 64 (38-126) U/L Total Creatine Kinase 96 (55-170) U/L CK-MB (CK-2) TNP CK-MB (CK-2) Rel Index TNP Troponin I < 0.012 (0.01-0.034) ng/mL Total Protein 7.6 (6.3-8.2) g/dL Albumin 4.8 (3.5-5.0) g/dL Globulin 2.8 (1.7-4.1) g/dL Albumin/Globulin Ratio 1.7 (1.0-2.8) Lipase 47 (23-300) U/L SARS-CoV-2 (PCR) (Negative) 07/19/22 07/19/22 Range/Units 18:25 19:15 WBC (4.5-11.0) X10^3/uL RBC (4.5-5.9) X10^6/uL Hgb (13.5-17.5) g/dL Hct (41-53) % MCV (80-100) fL MCH (26-34) PG MCHC (30-36) % RDW (11.6-14.8) % Plt Count (150-400) X10^3/uL Neut % (Auto) (50-75) % Lymph % (Auto) (25-40) % [place] % (Auto) (3-14) % Eos % (Auto) (2-4) % Baso % (Auto) (0-2) % Neut # (Auto) (8025-9360) /uL Lymph # (Auto) (3085-8993) /uL [place] # (Auto) (0-900) /uL Eos # (Auto) (0-450) /uL Baso # (Auto) (0-100) /uL PT (10.1-12.7) SECONDS INR (0.9-1.3) APTT (26-36) SECONDS Sodium (137-145) mmol/L Potassium (3.4-5.1) mmol/L Chloride (98-107) mmol/L Carbon Dioxide (22-32) mmol/L BUN (9-20) mg/dL Creatinine (0.66-1.25) mg/dL Estimated GFR (>60) mL/min BUN/Creatinine Ratio (6-22) Glucose (70-100) mg/dL Calcium (8.4-10.2) mg/dL Magnesium (1.6-2.3) mg/dL Total Bilirubin (0.2-1.3) mg/dL AST (17-59) IU/L ALT (<50) IU/L Alkaline Phosphatase (38-126) U/L Total Creatine Kinase 88 (55-170) U/L CK-MB (CK-2) TNP CK-MB (CK-2) Rel Index TNP Troponin I < 0.012 (0.01-0.034) ng/mL Total Protein (6.3-8.2) g/dL Albumin (3.5-5.0) g/dL Globulin (1.7-4.1) g/dL Albumin/Globulin Ratio (1.0-2.8) Lipase (23-300) U/L SARS-CoV-2 (PCR) Negative (Negative) MDM Narrative Medical decision making narrative: 27-year-old male with extensive cardiac history of congenital aortic stenosis, status post valve replacements, on warfarin presents today to the ED with 1 day of chest tightness, shortness of breath. Concern for ACS versus arrhythmia versus pneumonia versus PE versus URI versus other. Will obtain labs, chest x-ray, EKG, troponin, CT PE. EKG, chest x-ray without acute findings. EKG shows normal sinus rhythm, no acute ST-T changes. INR elevated to 4.6. All other labs within normal limits. CT PE without acute findings. Repeat x-ray was unchanged. Repeat troponin within normal limits. Discussed findings with patient. Patient agrees to hold Coumadin tonight, rechecked tomorrow morning before resuming Coumadin. ED return precautions were discussed with patient. Patient verbalized understanding. <Jose Stone, DO - Last Filed: 07/20/22 08:17> Lab Data Labs: Lab Results 07/19/22 07/19/22 07/19/22 Range/Units 17:02 17:02 17:02 WBC 9.2 (4.5-11.0) X10^3/uL RBC 5.07 (4.5-5.9) X10^6/uL Hgb 15.2 (13.5-17.5) g/dL Hct 43.6 (41-53) % MCV 85.9 (80-100) fL MCH 30.0 (26-34) PG MCHC 34.9 (30-36) % RDW 13.9 (11.6-14.8) % Plt Count 228 (150-400) X10^3/uL Neut % (Auto) 78.0 H (50-75) % Lymph % (Auto) 14.3 L (25-40) % [place] % (Auto) 6.4 (3-14) % Eos % (Auto) 0.7 L (2-4) % Baso % (Auto) 0.6 (0-2) % Neut # (Auto) 7100 H (3919-8099) /uL Lymph # (Auto) 1300 (4883-1973) /uL [place] # (Auto) 600 (0-900) /uL Eos # (Auto) 100 (0-450) /uL Baso # (Auto) 100 (0-100) /uL PT 53.1 H (10.1-12.7) SECONDS INR 4.6 H* (0.9-1.3) APTT 56 H (26-36) SECONDS Sodium 139 (137-145) mmol/L Potassium 4.3 (3.4-5.1) mmol/L Chloride 104 (98-107) mmol/L Carbon Dioxide 27 (22-32) mmol/L BUN 13 (9-20) mg/dL Creatinine 0.83 (0.66-1.25) mg/dL Estimated GFR > 60 (>60) mL/min BUN/Creatinine Ratio 15.7 (6-22) Glucose 106 H (70-100) mg/dL Calcium 9.4 (8.4-10.2) mg/dL Magnesium 2.0 (1.6-2.3) mg/dL Total Bilirubin 0.9 (0.2-1.3) mg/dL AST 29 (17-59) IU/L ALT 19 (<50) IU/L Alkaline Phosphatase 64 (38-126) U/L Total Creatine Kinase 96 (55-170) U/L CK-MB (CK-2) TNP CK-MB (CK-2) Rel Index TNP Troponin I < 0.012 (0.01-0.034) ng/mL Total Protein 7.6 (6.3-8.2) g/dL Albumin 4.8 (3.5-5.0) g/dL Globulin 2.8 (1.7-4.1) g/dL Albumin/Globulin Ratio 1.7 (1.0-2.8) Lipase 47 (23-300) U/L SARS-CoV-2 (PCR) (Negative) 07/19/22 07/19/22 Range/Units 18:25 19:15 WBC (4.5-11.0) X10^3/uL RBC (4.5-5.9) X10^6/uL Hgb (13.5-17.5) g/dL Hct (41-53) % MCV (80-100) fL MCH (26-34) PG MCHC (30-36) % RDW (11.6-14.8) % Plt Count (150-400) X10^3/uL Neut % (Auto) (50-75) % Lymph % (Auto) (25-40) % [place] % (Auto) (3-14) % Eos % (Auto) (2-4) % Baso % (Auto) (0-2) % Neut # (Auto) (2121-4064) /uL Lymph # (Auto) (8315-7851) /uL [place] # (Auto) (0-900) /uL Eos # (Auto) (0-450) /uL Baso # (Auto) (0-100) /uL PT (10.1-12.7) SECONDS INR (0.9-1.3) APTT (26-36) SECONDS Sodium (137-145) mmol/L Potassium (3.4-5.1) mmol/L Chloride (98-107) mmol/L Carbon Dioxide (22-32) mmol/L BUN (9-20) mg/dL Creatinine (0.66-1.25) mg/dL Estimated GFR (>60) mL/min BUN/Creatinine Ratio (6-22) Glucose (70-100) mg/dL Calcium (8.4-10.2) mg/dL Magnesium (1.6-2.3) mg/dL Total Bilirubin (0.2-1.3) mg/dL AST (17-59) IU/L ALT (<50) IU/L Alkaline Phosphatase (38-126) U/L Total Creatine Kinase 88 (55-170) U/L CK-MB (CK-2) TNP CK-MB (CK-2) Rel Index TNP Troponin I < 0.012 (0.01-0.034) ng/mL Total Protein (6.3-8.2) g/dL Albumin (3.5-5.0) g/dL Globulin (1.7-4.1) g/dL Albumin/Globulin Ratio (1.0-2.8) Lipase (23-300) U/L SARS-CoV-2 (PCR) Negative (Negative) Discharge Plan Departure Patient Disposition: Home Clinical Impression: Chest tightness Instructions: DI for Chest Pain Activity Restrictions/Additional Instructions: You were evaluated in the ED today for chest pain and shortness of breath. Your CT did not show any blood clots or pulmonary embolism. Your chest x-ray, EKG and labs were normal. You also tested negative for COVID. Return to the ED if you experience worsening chest pain, shortness of breath. Your INR was elevated to 4.6 today. You may hold your Coumadin tonight, recheck tomorrow prior to resuming the Coumadin. Prescriptions: No Action warfarin 5 mg tablet See Rx Instructions .ROUTE .COMPLEX Qty: 195 1RF Dose Instruction: TAKE 2 AND 1/2 TABLETS (12.5MG) ON TUES,THURS,FRI AND SUN. TAKE 2 TABLETS (10MG) THE OTHER 3 DAYS OR DIRECTED. PLEASE SCHEDULE ANNUAL APPOINTMENT FOR MORE REFILLS Rx Instructions: TAKE 2 AND 1/2 TABLETS (12.5MG) ON TUES,THURS,FRI AND SUN. TAKE 2 TABLETS (10MG) THE OTHER 3 DAYS OR DIRECTED. enalapril maleate 10 mg tablet See Rx Instructions .ROUTE .COMPLEX Qty: 180 1RF Dose Instruction: TAKE 1/2 TABLET BY MOUTH 2 TIMES A DAY. Rx Instructions: TAKE 1/2 TABLET BY MOUTH 2 TIMES A DAY. Referrals: Michelle Robertson MD [Primary Care Provider] - Stand Alone Forms: Patient Portal/API <Jose Stone DO - Last Filed: 07/20/22 08:17> [facility] I was immediately available in the department for consultation. This documentation has been reviewed and I agree with assessment and plan. Supervised by Jose Stone DO
== END 2022-07-19 20:18 | disposition home or self-care (01) ==
PROVIDERS: Emergency Medicine; Emergency Provider Student in an Organized Health Care Education/Training Program; Family Provider Family Medicine; PCP Family Medicine
DX: R07.9 Chest pain, unspecified (principal); R06.02 Shortness of breath; Z20.822 Contact with and (suspected) exposure to COVID-19
CPT/HCPCS: 36415; 71045; 71275; 80053; 82550; 83690; 83735; 84484; 85025; 85610; 85730; 87635; 93005; 99284; C9803; Q9967

== ENCOUNTER 2022-10-06 17:01 | Emergency (ER) | payer OTHER, SELFPAY ==
[2022-10-06 17:18] VITALS: BP 112/65; PULSE 85; RESP 16; TEMP 37.2; O2SAT 99; BMI 22.0
--- NOTE | 2022-10-06 17:24 | DI.RAD.S_ITS ---
PROCEDURE: XR KNEE RT 3V INDICATIONS: injury/pain TECHNIQUE: 3 views of the knee were acquired. COMPARISON: None. FINDINGS: Bones: No fractures or dislocations. No suspicious bony lesions. Soft tissues: No joint effusion. No suspicious soft tissue calcifications. IMPRESSION: Right knee without acute fracture or malalignment. If there are persistent symptoms or clinical suspicion for pathology, then repeat radiographs or advanced imaging (CT or MRI) may be considered for further evaluation. Dictated by: Jelani Castorena M.D. on 10/06/2022 at 18:26 Approved by: Jelani Castorena M.D. on 10/06/2022 at 18:27
--- NOTE | 2022-10-06 17:24 | DI.RAD.S_ITS ---
PROCEDURE: XR KNEE LT 3V INDICATIONS: injury/pain/swelling TECHNIQUE: 3 views of the knee were acquired. COMPARISON: None. FINDINGS: Bones: No fractures or dislocations. No suspicious bony lesions. Soft tissues: No joint effusion. No suspicious soft tissue calcifications. IMPRESSION: Left knee without acute fracture or dislocation. If there are persistent symptoms or clinical suspicion for pathology, then repeat radiographs or advanced imaging (CT or MRI) may be considered for further evaluation. Dictated by: Jelani Castorena M.D. on 10/06/2022 at 18:27 Approved by: Jelani Castorena M.D. on 10/06/2022 at 18:27
--- NOTE | 2022-10-06 18:54 | ED.LOWEXIN ---
HPI - Extremity Injury (Lower) General Chief Complaint: Extremity Injury, Lower Stated Complaint: bilateral leg injuries. Left more than right Time Seen by Provider: 10/06/22 17:55 Source: patient Mode of arrival: Ambulatory History of Present Illness HPI Narrative: 27-year-old male nonsmoker with history of valve disease, hypertension, anticoagulated on warfarin presents for evaluation of injury suffered as a consequence of a work-related accident just prior to arrival. He states that multiple large glass panels weighing approximately 700 lb leaned up against his knees causing pain. He is ambulatory but has pain. Related Data Previous Rx's Medication Instructions Recorded enalapril maleate 10 mg tablet See Rx Instructions .Route 06/02/22 .COMPLEX #180 tabs warfarin 5 mg tablet See Rx Instructions .Route 09/07/22 .COMPLEX #195 tabs Allergies Allergy/AdvReac Type Severity Reaction Status Date / Time No Known Drug Allergies Allergy Verified 07/19/22 17:00 Review of Systems Review of Systems Narrative: GENERAL: Denies chills, fatigue, malaise, fever, sweats. HEENT: Denies sinus pain, ear pain, sore throat, difficulty swallowing, dizziness. RESPIRATORY: Denies dyspnea, cough, wheezing, hemoptysis, sputum. CARDIOVASCULAR: Denies chest pain, palpitations, orthopnea, edema, GASTROINTESTINAL: Denies nausea, vomiting, abdominal pain, diarrhea, constipation, melena. : Denies dysuria, frequency, incontinence, hematuria, urinary retention. MUSCULOSKELETAL: See HPI SKIN: See HPI NEUROLOGIC: Denies weakness, headache, numbness, change in speech, confusion, seizures, incoordination. PSYCHIATRIC: No concerning psychosocial issues. 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 Brother No problems noted. Sister No problems noted. Grandmother No problems noted. Mother No problems noted. Grandfather Heart attack Lung cancer Grandmother No problems noted. Family/Other Loud snoring Heart disease Father Loud snoring Social History Smoking Status: Never smoker Smoking Status: Never smoker alcohol intake frequency: a few times a week Substance Use Type: marijuana Exam Narrative Exam Narrative: GEN: AOx3 and in mild distress EYES: Pupils are equal, round, and reactive to light and accommodation. Extraoccular muscles are intact bilaterally. There is no subconjunctival hemorrhage or exudate. CHEST: Lungs are clear to auscultation bilaterally and free of wheezes, rales, or rhonchi. Heart rate is regular rhythm, there are no murmurs, clicks, rubs, or gallops. There is no chest wall tenderness. ABD: Abdomen is soft and nontender. There is no guarding or rebound. Bowel sounds are normal in all 4 quadrants. There is no mass or organomegaly. EXT: Full painless ROM of all extremities with no loss of sensation or strength.B/L knees with superficial abrasions only. No effusion. No ligamentous instability, ambulatory without pain, no bony tenderness. SKIN: Warm, pink, and dry. No erythema or rash Initial Vital Signs Initial Vital Signs: Vital Signs Temperature 99 F 10/06/22 17:18 Pulse Rate 85 10/06/22 17:18 Respiratory Rate 16 10/06/22 17:18 Blood Pressure 112/65 10/06/22 17:18 Pulse Oximetry 99 10/06/22 17:18 Oxygen Delivery Method Room Air 10/06/22 17:18 Course Orders Ordered: ED Orders 10/06/22 17:24 XR knee LT 3V Stat XR knee RT 3V Stat Vital Signs Vital signs: Vital Signs - 8 hr 10/06/22 17:18 Temperature 99 F Pulse Rate 85 Respiratory Rate 16 Blood Pressure 112/65 Pulse Oximetry 99 Oxygen Delivery Method Room Air MDM - Extremity Injury (Lower) MDM Narrative Medical decision making narrative: [27] year old patient presents with work-related injury to bilateral knees Multiple etiologies for patient's symptoms considered including, but not limited to: [Abrasion versus hematoma versus contusion versus other] Prior Charts reviewed in our EMR Primary Historian: patient Imaging reviewed: Bilateral knee x-rays without evidence of fracture or dislocation Patient has very reassuring history and physical exam, no effusions, no bony tenderness, x-rays are reassuring, painless ambulation. No ligamentous laxity, no evidence of hematoma, no wounds requiring repair. Patient appropriate for discharge. His L and I paperwork is completed at time of visit Findings and discharge diagnosis discussed with patient/family followed by verbalization of understanding Return precautions discussed with patient/family whom verbalize understanding of diagnosis and plan Discharge Plan Departure Patient Disposition: Home Clinical Impression: Contusion of knee, left, Contusion of knee, right Instructions: DI for Knee Pain Activity Restrictions/Additional Instructions: *You have been diagnosed with [bilateral knee contusions and abrasion. As we discussed your history and physical exam are reassuring and x-ray show no evidence of fracture or dislocation.] *What to do: *Please continue to take your regular medications as directed. [ ] New medication prescriptions sent to your pharmacy: [ ] [ ] New medication written as a paper prescription [x ] No new medications given *Please follow up with your primary care provider in 2-3 days, call for an appointment. Let them know you were seen in the Emergency Department and that we ask that you be seen in follow up. We will electronically transmit a record of today's note if your PCP is in our system *If you do not have a primary care provider please contact the [facility] Resource line at [phone]. They will ask some questions about your medical history and help get you set up with a doctor in the community. *Return to Emergency Department if you should have any new, worsening or concerning symptoms, such as [fever greater than 101 F, shaking chills, worsening pain, persistent vomiting or other bothersome symptoms] Prescriptions: No Action enalapril maleate 10 mg tablet See Rx Instructions .ROUTE .COMPLEX Qty: 180 1RF Dose Instruction: TAKE 1/2 TABLET BY MOUTH 2 TIMES A DAY. Rx Instructions: TAKE 1/2 TABLET BY MOUTH 2 TIMES A DAY. warfarin 5 mg tablet See Rx Instructions .ROUTE .COMPLEX Qty: 195 0RF Dose Instruction: TAKE 2 AND 1/2 TABLETS (12.5MG) ON ,THURS,FRI AND SUN. TAKE 2 TABLETS (10MG) THE OTHER 3 DAYS OR DIRECTED. Rx Instructions: TAKE 2 AND 1/2 TABLETS (12.5MG) ON TUES,THURS,FRI AND SUN. TAKE 2 TABLETS (10MG) THE OTHER 3 DAYS OR DIRECTED. Referrals: Michelle Robertson MD [Primary Care Provider] - Stand Alone Forms: Patient Portal/API
== END 2022-10-06 19:08 | disposition home or self-care (01) ==
PROVIDERS: Emergency Provider Emergency Medicine; Family Provider Family Medicine; PCP Family Medicine
DX: S80.02XA Contusion of left knee, initial encounter (principal); S80.01XA Contusion of right knee, initial encounter; X50.0XXA Overexertion from strenuous movement or load, initial encounter; Y99.0 Civilian activity done for income or pay
CPT/HCPCS: 73562; 99283

== ENCOUNTER → 2023-12-28 14:14 | Outpatient (CLI) | payer OTHER, SELFPAY ==
--- NOTE | 2023-12-28 | DI.CT.S_ITS ---
PROCEDURE: CT LUMBAR SPINE WO CON INDICATIONS: low back pain with radiculopathy TECHNIQUE: Noncontrast 3 mm thick sections acquired from the T12 level to the sacrum. Sagittal and coronal reformats were constructed. For radiation dose reduction, the following was used: automated exposure control. COMPARISON: None. FINDINGS: Image quality: Excellent Alignment of the lumbar spine is anatomic. Multiple small Schmorl's node at the thoracolumbar junction. Vertebral body heights of the lumbar spine is well maintained. Multilevel mild degenerative disease at the thoracolumbar junction. Multilevel disc bulge and disc desiccation of the lumbar spine. Right neural foraminal stenosis: None. Left neural foraminal stenosis: Mild at L5-S1. Axial images: T12-L1: No central canal stenosis. L1-2: No central canal stenosis. L2-3: Mild disc bulge. No central canal stenosis. L3-4: No central canal stenosis. L4-5: No central canal stenosis. L5-S1: Diffuse disc bulge, superimposed central disc protrusion. Mild central canal stenosis. No significant lumbar facet arthropathy. Visualized sacrum is intact. Other soft tissue findings: Visualized lung bases unremarkable. No abdominal aortic aneurysm. IMPRESSION: 1. Multilevel degenerative changes of the lumbar spine, most pronounced at L5-S1, where there is central disc protrusion, mild central canal stenosis, and mild left neural foraminal stenosis. Dictated by: Doris Ruiz M.D. on 12/28/2023 at 18:05 Approved by: Doris Ruiz M.D. on 12/28/2023 at 18:17
== END ==
LOC: CT 14:15
PROVIDERS: Family Provider Family Medicine; PCP Family Medicine; Referring Provider Chiropractor; Visit Provider Chiropractor
DX: M47.27 Other spondylosis with radiculopathy, lumbosacral region (principal); M51.17 Intervertebral disc disorders with radiculopathy, lumbosacral region; M48.07 Spinal stenosis, lumbosacral region; M99.13 Subluxation complex (vertebral) of lumbar region; M54.51 Vertebrogenic low back pain
CPT/HCPCS: 72131

== ENCOUNTER → 2024-02-09 09:02 | Outpatient (CLI) | payer OTHER, SELFPAY ==
[2024-02-09 10:41] LABS: Prothrombin Time 54.3 SECONDS (9.4-12.5)
[2024-02-09 10:53] LABS: Alanine Aminotransferase 26 IU/L (<50); Albumin Globulin Ratio 2.3 (1.0-2.8); Alkaline Phosphatase 55 U/L (38-126); Aspartate Aminotransferase 35 IU/L (17-59); BUN Creatinine Ratio 17.3 (6-22); Bilirubin Total 0.9 mg/dL (0.2-1.3); Blood Urea Nitrogen 14 mg/dL (9-20); Calcium 9.8 mg/dL (8.4-10.2); Carbon Dioxide 26 mmol/L (22-32); Chloride 102 mmol/L (98-107); Cholesterol 185 mg/dL (140-199); Estimated Glomerular Filt Rate > 60 mL/min (>60); Globulin 2.2 g/dL (1.7-4.1); Glucose 55 mg/dL (70-100); HDL Cholesterol 62 mg/dL (40-60); HEMOLYSIS < 15 (0-50); LDL Cholesterol Calculated 97 mg/dL (<100); Potassium 4.7 mmol/L (3.4-5.1); Sodium 137 mmol/L (137-145); Total Protein 7.2 g/dL (6.3-8.2); Triglycerides 132 mg/dL (35-150)
[2024-02-09 14:51] LABS: Microalbumin Urine Random 0.8 mg/dL (0-1.6)
[2024-02-09 15:03] LABS: Creatinine Urine Random 163.71 mg/dL
== END ==
PROVIDERS: Family Provider Family Medicine; PCP Family Medicine; Referring Provider Family Medicine; Visit Provider Family Medicine
DX: I10 Essential (primary) hypertension (principal); Z95.2 Presence of prosthetic heart valve; Z51.81 Encounter for therapeutic drug level monitoring; Z79.01 Long term (current) use of anticoagulants
CPT/HCPCS: 36415; 80053; 80061; 82043; 82570; 85610

== ENCOUNTER 2024-03-02 19:36 | Emergency (ER) | payer OTHER, SELFPAY ==
[2024-03-02 19:42] VITALS: BP 104/59; PULSE 80; RESP 14; TEMP 36.4; O2SAT 100; BMI 21.4
--- NOTE | 2024-03-02 19:47 | ED.EPISTAXIS ---
HPI - Epistaxis General Chief complaint: Nasal Problem Stated complaint: bloody nose for more than 1 hour Time Seen by Provider: 03/02/24 19:46 Source: patient Mode of arrival: Ambulatory History of Present Illness HPI Narrative: 28-year-old male with history of aortic and pulmonic valve replacement (hx aortic coarctation as child) presents for nosebleed. He states that he was playing with his child and he accidentally elbowed him in the nose, causing it to bleed. He was on Coumadin for his valve replacement. States last INR earlier this week 2.0, he has a machine at home that he uses to monitor his INR. 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 Brother No problems noted. Sister No problems noted. Grandmother No problems noted. Mother No problems noted. Grandfather Heart attack Lung cancer Grandmother No problems noted. Family/Other Loud snoring Heart disease Father Loud snoring Social History Smoking Status: Never smoker Smoking Status: Never smoker alcohol intake frequency: a few times a week Substance Use Type: marijuana Exam Initial Vital Signs Initial Vital Signs: Vital Signs Temperature 97.6 F 11/22/24 19:42 Pulse Rate 80 03/02/24 19:42 Respiratory Rate 14 03/02/24 19:42 Blood Pressure 104/59 L 03/02/24 19:42 Pulse Oximetry 100 03/02/24 19:42 Oxygen Delivery Method Room Air 03/02/24 19:42 Const: Awake, alert, no acute distress, nontoxic appearing Nose: R nostril with irritated mucosa, no current active bleeding. L nare normal Skin: Warm, Dry, intact, no rashes Neuro: AO x3, CN II-XII grossly intact, moves all extremities Course Orders Ordered: Discontinued Medications Oxymetazoline HCl (Oxymetazoline Nasal [place] 30 Ml) 2 sprays NASAL NOW ONE Stop: 03/02/24 19:47 Last Admin: 03/02/24 19:56 Dose: 2 sprays Documented By: FREDY Vital Signs Vital signs: Vital Signs - 8 hr 03/02/24 19:42 Temperature 97.6 F Pulse Rate 80 Respiratory Rate 14 Blood Pressure 104/59 L Pulse Oximetry 100 Oxygen Delivery Method Room Air MDM - Epistaxis MDM Narrative Medical decision making narrative: Patient presenting for nosebleed on Coumadin. Afrin administered and clamps applied. Upon the time of my evaluation the bleeding had stopped and there was no further rebleeding. I offered to check patient's INR, he declined stating that he would monitor his INR at home with his machine. He was sent home with the bottle of Afrin and clamps, counseled on nosebleed maneuvers at home. Discharge Plan Departure Patient Disposition: Home Clinical Impression: Epistaxis Instructions: DI for Nosebleed Activity Restrictions/Additional Instructions: Do not touch or manipulate your nose tonight. If you experience bleeding again from your nose then spray 2-3 squirts of Afrin in the affected nostril and apply the clamp for 15-20 minutes. This should resolve your bleeding, however if this does not resolve your bleeding then come back to the emergency department for additional assistance. Prescriptions: No Action enalapril maleate 10 mg tablet See Rx Instructions .ROUTE .COMPLEX Qty: 180 1RF Dose Instruction: TAKE 1/2 TABLET BY MOUTH 2 TIMES A DAY. Rx Instructions: TAKE 1/2 TABLET BY MOUTH 2 TIMES A DAY. warfarin 5 mg tablet See Rx Instructions .ROUTE .COMPLEX Qty: 195 0RF Protocol: Dose Management Condition: Tuesday Dose/Route: 10 mg Instruction: 2 x 5 mg tablets Condition: Tuesday Dose/Route: 10 mg Instruction: 2 x 5 mg tablets Condition: Tuesday Dose/Route: 10 mg Instruction: 2 x 5 mg tablets Condition: Tuesday Dose/Route: 12.5 mg Instruction: 2.5 x 5 mg tablets Condition: Dose/Route: 10 mg Instruction: 2 x 5 mg tablets Condition: Tuesday Dose/Route: 10 mg Instruction: 2 x 5 mg tablets Condition: Tuesday Dose/Route: 10 mg Instruction: 2 x 5 mg tablets Protocol Text: Adjustment Start Date: Tuesday02/29/24 INR Value: 2.0 INR Date: 02/29/24 Recheck Date: 03/07/24 Dose Instruction: TAKE 2 AND 1/2 TABLETS (12.5MG) ON ,,TUE AND TUE. TAKE 2 TABLETS (10MG) THE OTHER 3 DAYS OR DIRECTED. Rx Instructions: TAKE 1 1/2 TABLET ON (12.5 mg) ON . TAKE 2 TABLETS (10MG) ALL OTHER DAYS; OR DIRECTED. Referrals: Michelle Robertson MD [Primary Care Provider] - Stand Alone Forms: Patient Portal/API/Survey
[2024-03-02] MEDS: OXYMETAZOLINE NASAL SPRAY 30 ML 2 SPRAYS NASAL (19:56)
== END 2024-03-02 20:33 | disposition home or self-care (01) ==
PROVIDERS: Emergency Provider Emergency Medicine; Family Provider Family Medicine; PCP Family Medicine
DX: R04.0 Epistaxis (principal); Z79.01 Long term (current) use of anticoagulants
CPT/HCPCS: 99282

== ENCOUNTER → 2024-05-21 15:53 | Outpatient (CLI) | payer OTHER, SELFPAY ==
--- NOTE | 2024-05-23 14:37 | DIET.OUTPTC ---
Dietary Outpatient Consultation Note Consultation Date: 05/21/2024 Assessment: 28 y M referred to dietitian for heart disease. Jared has included 4 servings of low vit K (<30mcg) fruits daily plus 1 higher (60-100 mcg vit K) vegetable daily based on food preferences and likes. Looking to explore good fiber options. Reports some harder stools around 2x/wk (2-3 on [facility] stool chart) while other BMs are 4s. Discusses adding protein shake back in the morning time to gain weight. 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 Ht: 5 ft 8 in Wt: 148 lb BMI: 22.5 Nutrition Diagnosis: Nutrition related knowledge deficit related to limited previous nutrition educ aeb pt wanting to know more about fiber options Interventions: -Discussed and provided handouts on types of fiber, amount currently getting in diet (25 g) and recc amount (30-38 g), and fiber options -Discussed maintaining adequate hydration to support increases in fiber and continuing movement -Provided handout on Mediterranean dietary pattern and discussed components GOALS: -30-38 g fiber daily with additional oatmeal in morning + patient's benefiber supplement during day -Patient is wanting to gain weight/muscle - will do protein shake with oatmeal for breakfast now Monitoring/Evaluations: Pt feeling confident in vit k content of foods and resources, feels confident in adding fiber options to diet for consistent 30-38 g fiber daily and having heart healthy diet while maintaining consistent vit K intake. F/u PRN. Electronically Signed by: Emma Mack 05/23/24 14:37 Clinical Dietitian [place] [address] [place] [address]
== END ==
PROVIDERS: Family Provider Family Medicine; PCP Family Medicine; Referring Provider Family Medicine
DX: I51.9 Heart disease, unspecified (principal); Z71.3 Dietary counseling and surveillance; Z68.22 Body mass index [BMI] 22.0-22.9, adult
CPT/HCPCS: 97803

== ENCOUNTER → 2025-03-17 12:03 | Outpatient (CLI) | payer OTHER, SELFPAY ==
[2025-03-17 14:04] LABS: Influenza A - CEPHEID Flu A POSITIVE (NEGATIVE); Influenza B - CEPHEID Flu B NEGATIVE (NEGATIVE)
[2025-03-17 14:05] LABS: COVID-19 CEPHEID 4-PLEX PCR Negative (Negative)
== END ==
PROVIDERS: PCP Family Medicine; Visit Provider Registered Nurse
DX: Z20.828 Contact with and (suspected) exposure to other viral communicable diseases (principal)
CPT/HCPCS: 87637